=== PATIENT | male | born 1985 | race African-American/Black ===

== ENCOUNTER 2020-04-22 10:11 | Emergency (ER) | payer OTHER ==
[2020-04-23 16:07] LABS: SARS-CoV-2 MS2 Positive; SARS-CoV-2 N Gene Negative; SARS-CoV-2 S Gene Negative; SARS-CoV-2 orf1ab Negative
== END 2020-04-22 10:45 | disposition home or self-care (01) ==
LOC: ERS 10:11
DX: J02.9 Acute pharyngitis, unspecified (principal); R51 Headache; R05 Cough; R09.81 Nasal congestion; Z20.828 Contact with and (suspected) exposure to other viral communicable diseases
CPT/HCPCS: 87635; 99284; U0003

== ENCOUNTER 2023-09-24 06:58 | Emergency (ER) | payer BC ==
[2023-09-24 08:00] LABS: Hemoglobin 13.3 g/dL (14.0-18.0); Manual Diff?? YES; Mean Corpuscular HGB CONC 30.9 g/dL (32.0-36.0); Mean Corpuscular Volume 77.5 fl (78.0-98.0); Mean Platelet Volume 9.6 fL (7.4-10.4); Platelet Count 215 10x3/uL (130-400); RBC Distribution Width 14.5 % (11.5-14.5); Red Blood Cell (RBC) Count 5.55 mill/uL (4.70-6.10); White Blood Cell (WBC) Count 7.3 10x3/uL (4.8-10.8)
[2023-09-24 08:02] LABS: Delete Auto Diff?? YES
[2023-09-24 08:24] LABS: Band 6 % (5-11); CellaVision Operator ID lab.dlt; Lymphocytes 9 % (21-51); Monocytes 17 % (0-10); Neutrophil 67 % (42-75); Platelet Adequacy Comment Platelets Normal; Target Cells SLIGHT = 2-5 cells HPF (0-1); Total Cell Count 100
[2023-09-24 08:28] LABS: ALT (SGPT) 14 U/L (8-55); AST (SGOT) 18 U/L (5-34); Albumin 4.1 g/dL (3.5-5.0); Alkaline Phosphatase 66 U/L (40-110); Anion Gap 13 mmol/L (10-20); BUN (Urea Nitrogen) 11 mg/dL (8.9-20.6); Bilirubin, Total 0.5 mg/dL (0.2-1.2); Calc. Creatinine Clearance 0 mL/min (70-130); Carbon Dioxide 22 mmol/L (22-29); Chloride 102 mmol/L (98-107); Estimated GFR 89; Glucose 98 mg/dL (70-105); Potassium 3.5 mmol/L (3.5-5.1); Protein, Total 7.1 g/dL (6.0-8.3); Sodium 133 mmol/L (136-145)
[2023-09-24 08:36] LABS: SARS-CoV-2 NAA Rapid Test Not Detected (NotDetected)
[2023-09-24] MEDS ORDERED: Ibuprofen 200 MG TAB ONE (09:22)
== END 2023-09-24 09:45 | disposition home or self-care (01) ==
LOC: ERS 06:58
DX: J10.1 Influenza due to other identified influenza virus with other respiratory manifestations (principal); F17.210 Nicotine dependence, cigarettes, uncomplicated; Z20.822 Contact with and (suspected) exposure to COVID-19
CPT/HCPCS: 36415; 71045; 80053; 84484; 85025; 93005